=== PATIENT | female | born 1975 | race Caucasian/White ===

== ENCOUNTER 2018-02-26 00:53 | Emergency (ER) | payer OTHER ==
[~2018-02-26] VITALS: Wt 77.4 kg
[~2018-02-26 00:53] MED LIST: ALBU18HF INHALATION; ALBU90AE INHALATION; AZIT500T5 PO; PRED50 PO
[2018-02-26 00:56] VITALS: BP 150/77; PULSE 100; RESP 18
[2018-02-26] MEDS ORDERED: AMOX1TAB10 PO (01:18)
--- NOTE | 2018-02-26 06:14 | ERD ---
ER Documentation Chief Complaint Chief Complaint bit by neighbors dog on left calf HPI 43-year-old female presents for dog bite times 1 day. She did not present yesterday because she states she did not have a ride. Dog bite is noted in the left calf area. The dog is a neighbors dog. There are no abnormal behavior from the dog. Patient states that she had a tetanus shot a few months ago as part of her physical exam with her PCP. ROS All systems reviewed and are negative except as per history of present illness. Medications Home Meds Active Scripts Amoxicillin/Potassium Clav (Amox-Clav 875-125 mg Tablet) 875-125 mg Tab, 1 TAB PO BID for dog bite for 4 Days, #8 TAB Prov:KAMRON ESPINAL DO 02/26/18 Albuterol Sulfate* (Ventolin HFA*) 18 Gm Hfa.aer.ad, 2 PUFF INHALATION Q4H, #1 INHALER Prov:WESTLEY CARLOS 09/02/15 Azithromycin* (Azithromycin*) 500 Mg Tablet, 500 MG PO DAILY for 5 Days, TAB Prov:WESTLEY CARLOS 09/02/15 Prednisone (Prednisone) 50 Mg Tab, 50 MG PO DAILY, #5 TAB Prov:WESTLEY CARLOS 09/02/15 Reported Medications Albuterol Sulfate (Proair Respiclick) 90 Mcg Aer.pow.ba, 1 PUFF INHALATION Q4 PRN for COUGH, #1 BOTTLE 09/01/15 Allergies Allergies: Coded Allergies: No Known Allergy (Unverified , 09/01/15) PMhx/Soc History of Surgery: Yes (hysterectomy 2009) Anesthesia Reaction: No Hx Neurological Disorder: No Hx Respiratory Disorders: Yes (Asthma) Hx Cardiac Disorders: No Hx Psychiatric Problems: No Hx Miscellaneous Medical Probl: No Hx Alcohol Use: No Hx Substance Use: No Hx Tobacco Use: No Smoking Status: Never smoker Physical Exam Vitals Vital Signs Date Temp Pulse Resp B/P (MAP) Pulse Ox O2 O2 Flow FiO2 Time Delivery Rate 02/26/18 98.0 100 18 150/77 99 00:56 (101) Physical Exam Const: No acute distress Resp: Clear to auscultation bilaterally Cardio: Regular rate and rhythm, no murmurs Abd: Soft, non tender, non distended. Normal bowel sounds Skin: No petechiae or rashes Back: No midline or flank tenderness Ext: Left calf 2 cm bite yobani, clean and dry, no erythema or increased warmth noted Neur: Awake and alert, left leg sensation intact Psych: Normal Mood and Affect Procedures/MDM Medical Decision Making: Patient appear well on examination. Bite yobani noted on the left calf area. About 2 cm. Patient already had a tetanus shot a few months ago. Therefore no tetanus was given in the ER. Patient given prescription for Augmentin. Advised to keep the wound clean and dry. Patient advised to follow up with PCP in 1-2 days. Patient advised to return to ED for new or worsening symptoms. Patient stable on discharge from the ED. Disclaimer: Inadvertent spelling and grammatical errors are likely due to EHR/dictation software use and do not reflect on the overall quality of patient care. Also, please note that the electronic time recorded on this note does not necessarily reflect the actual time of the patient encounter. Departure Diagnosis: Primary Impression: Dog bite Condition: Fair Patient Instructions: Dog Bite Referrals: [facility] YOU HAVE RECEIVED A MEDICAL SCREENING EXAM AND THE RESULTS INDICATE THAT YOU DO NOT HAVE A CONDITION THAT REQUIRES URGENT TREATMENT IN THE EMERGENCY DEPARTMENT. FURTHER EVALUATION AND TREATMENT OF YOUR CONDITION CAN WAIT UNTIL YOU ARE SEEN IN YOUR DOCTORS OFFICE WITHIN THE NEXT 1-2 DAYS. IT IS YOUR RESPONSIBILITY TO MAKE AN APPOINTMENT FOR FOLOW-UP CARE. IF YOU HAVE A PRIMARY DOCTOR --you should call your primary doctor and schedule an appointment IF YOU DO NOT HAVE A PRIMARY DOCTOR YOU CAN CALL OUR PHYSICIAN REFERRAL HOTLINE AT IF YOU CAN NOT AFFORD TO SEE A PHYSICIAN YOU CAN CHOSE FROM THE FOLLOWING [facility] [address] [facility] [address] [facility] [address] [facility] [address] [facility] [address] [facility]. [facility]. [address] Additional Instructions: Call your primary care doctor TOMORROW for an appointment during the next 1-2 days.See the doctor sooner or return here if your condition worsens before your appointment time. KAMRON ESPINAL DO Feb 26, 2018 06:14
== END 2018-02-26 01:50 | disposition home or self-care (01) ==
LOC: FTE 00:53
DX: S81.852A Open bite, left lower leg, initial encounter (principal); J45.909 Unspecified asthma, uncomplicated; W54.0XXA Bitten by dog, initial encounter; Y92.9 Unspecified place or not applicable
CPT/HCPCS: 99283